=== PATIENT | male | born 1980 | race Caucasian/White ===

== ENCOUNTER 2019-07-29 15:29 | Observation (INO) ==
--- NOTE | 2019-07-29 16:03 | XRay Report ---
XR chest 1V portable HISTORY: Atypical Chest Pain COMPARISON: None. FINDINGS: There are low lung volumes. No pneumothorax. No pleural effusions. Prominence of the cardia c silhouette may be accentuated by the low lung volumes. There are bibasilar linear densities. The annika ngs are clear. No evidence for pulmonary edema. IMPRESSION: Low lung volumes with bibasilar densities suggesting atelectasis. A pneumonia could also have a simil ar appearance. Electronically signed by: Thong Dodge M.D. 07/29/2019 4:01 PM
[2019-07-29 16:32] LABS: Basophils # (auto) 0.01 K/uL (0-0.2); Basophils % (auto) 0.1 %; Eosinophils # (auto) 0.03 K/uL (0-0.5); Eosinophils % (auto) 0.4 %; Hemoglobin 16.6 g/dL (14.0-18.0); Immature Granulocytes # (auto) 0.04 K/uL (0.00-0.02); Immature Granulocytes % (auto) 0.5 %; Lymphocytes # (auto) 1.32 K/uL (1.2-3.4); Lymphocytes % (auto) 15.4 %; Mean Corpuscular Hgb Conc 35.3 g/dL (32-36); Mean Platelet Volume 10.8 fL (7.4-10.4); Monocytes # (auto) 0.57 K/uL (0.11-0.59); Monocytes % (auto) 6.7 %; Neutrophils # (auto) 6.58 K/uL (1.4-6.5); Neutrophils % (auto) 76.9 %; Platelet Count 255 K/uL (130-400); RDW Coefficient of Variation 12.8 % (11.5-14.5); RDW Standard Deviation 39.9 fL (36.4-46.3); Red Blood Count 5.53 M/uL (4.7-6.1); White Blood Count 8.55 K/uL (4.8-10.8)
[2019-07-29 16:43] LABS: Partial Thromboplastin Ratio 0.9; Partial Thromboplastin Time 25.4 Seconds (21.0-31.0); Prothrombin Time 10.3 Seconds (9.0-12.0)
[2019-07-29 16:44] LABS: D Dimer < 190 ug/L FEU (0-500)
[2019-07-29 16:49] LABS: Alanine Aminotransferase 39 U/L (12-78); Albumin Level 4.3 gm/dl (3.4-5.0); Aspartate Aminotransferase 11 U/L (15-37); BUN Creatinine Ratio 13.4 (10-20); Blood Urea Nitrogen 14 mg/dl (7-18); Calcium 9.4 mg/dl (8.5-10.1); Carbon Dioxide 29 mmol/L (21-32); Chloride 108 mmol/L (98-107); Creatinine Clr Calc Pharmacy 116.1 ml/min; Est GFR (African American) 103.1; Glucose 103 mg/dl (70-99); Lipase 57 U/L (73-393); Potassium 3.8 mmol/L (3.5-5.1); Sodium 141 mmol/L (136-145)
[2019-07-29 16:54] LABS: Albumin Globulin Ratio 1.2 (0.9-2); Alkaline Phosphatase 64 U/L (45-117); Bilirubin,Total 0.3 mg/dl (0.2-1); Globulin 3.5 gm/dl (2.5-4.0); Total Protein 7.8 gm/dl (6.4-8.2); Troponin I < 0.015 ng/ml (0-0.045)
--- NOTE | 2019-07-29 17:51 | Emergency Department Note ---
Entered by Francisco Leiva acting as a scribe for History of Present Illness General Chief complaint: Chest Pain Stated complaint: CHEST PAIN Time Seen by Provider: 07/29/19 15:35 Source: patient History of Present Illness Provider complaint: Chest pain Onset (ago): hour(s) greater than 10 Location: chest Radiation: non-radiation Pain Consistency: + constant Quality: + other (Pressure) Relieved By: + none Exacerbated By: + none Associated symptoms: + diaphoresis and + other (Positive dizziness ); no shortness of breath The patient is a 39 year old male who presents to the Emergency Room with complaints of constant left sided chest pain that started early this morning around 02:00, about 14 hours ago. The describes his pain as a pressure and notes "it feels like something is sitting on my chest". 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 The patient reports some pain with deep breathing but denies any shortness of breath or lower extremity swelling. Prior to coming to the ED, the patient stopped at [facility] on the way home from work because he felt dizzy and diaphoretic. While at [facility] the patient had 4 Aspirin but no Nitro. The patient has no past medical history but does have a family history of HLD. Home Medications Home Medications Medication Instructions Recorded Confirmed Type No Known Home Medications 07/29/19 07/29/19 History Allergies Allergy/AdvReac Type Severity Reaction Status Date / Time No Known Allergies Allergy Unverified 07/29/19 16:05 Past Med/Surg History Medical History No pertinent past medical history Family History Other Dyslipidemia Social History Feels Safe at Home: Yes Smoking Status: Never smoker Review of Systems See HPI for pertinent positives & negatives. and A total of 10 systems reviewed and were otherwise negative Physical Exam Vital Signs Vital Signs - 24 hr 07/29/19 15:42 07/29/19 15:44 07/29/19 16:53 Temperature 37.0 C Temperature Source Oral Sepsis Recent Fever Within 48 Hours No Sepsis Action Taken by Nursing No Action Required Pulse Rate 83 82 Pulse Rate [Finger] 81 Pulse Rhythm Regular Respiratory Rate 17 16 Blood Pressure 151/110 H Blood Pressure [Left Arm] 149/88 H Blood Pressure Mean 123 Blood Pressure Mean [Left Arm] 108 Pulse Oximetry 99 99 99 Oxygen Delivery Method Room Air Room Air Room Air 07/29/19 17:30 Temperature Temperature Source Sepsis Recent Fever Within 48 Hours Sepsis Action Taken by Nursing Pulse Rate Pulse Rate [Finger] 72 Pulse Rhythm Respiratory Rate 15 Blood Pressure Blood Pressure [Left Arm] 133/90 Blood Pressure Mean Blood Pressure Mean [Left Arm] 104 Pulse Oximetry 99 Oxygen Delivery Method Room Air GENERAL: Patient is awake, alert, and in no acute distress.Patient is resting comfortably and showing no signs of anxiety EYES: The conjunctivae are clear. The pupils are round and reactive. EARS, NOSE, MOUTH AND THROAT: The nose is without any evidence of any deformity. Mucous membranes are moist.Tongue is midline NECK: The neck is nontender and supple. RESPIRATORY: Normal respiratory effort is noted. There is no evidence of wheezing rhonchi or rales to auscultation. CARDIOVASCULAR: Regular rate and rhythm noted. There no murmurs rubs or gallops normal S1 normal S2 GASTROINTESTINAL: The abdomen is soft. Bowel sounds are present in all quadrants. Abdomen is nontender. MUSCULOSKELETAL/EXTREMITIES: There is no evidence of gross deformity. Full range of motion is noted in the hips and shoulders. SKIN: There is no obvious evidence of any rash. There are no petechiae, pallor or cyanosis noted. NEUROLOGIC: Patient is awake alert and oriented x3. Course 1537: Past medical records reviewed. The patient was evaluated in room B05, and a complete history and physical examination were performed. 1718: I reevaluated the patient and updated him on results. Given that the patient does not have a PCP, I suggested he stay in the hospital. The patient agreed with the plan. 1731: I spoke to Dr. Richard Reyes [facility] about the patient's case. She will be accepting the patient for further evaluation. Consultations Consultation #1: I spoke to Dr. Richard Reyes [facility] Hospitalist about the patient's case. She will be accepting the patient for further evaluation. Time: 17:31 Medical Decision Making Differential Diagnosis Differential diagnoses includes but is not limited to acute coronary syndrome, myocardial infarction, pericarditis, pulmonary embolus, aortic dissection, pneumonia, pneumothorax, musculoskeletal, shingles, esophageal. Medical Records Attestation: I reviewed the patient's medical records. Home Medications Current Medication List: was personally reviewed by me Laboratory Data Attestation: I reviewed the patient's lab results. Result diagrams: 07/29/19 16:15 07/29/19 16:15 Lab Results 07/29/19 07/29/19 07/29/19 Range/Units 16:15 16:15 16:15 WBC 8.55 (4.8-10.8) K/uL RBC 5.53 (4.7-6.1) M/uL Hgb 16.6 (14.0-18.0) g/dL Hct 47.0 (42-52) % MCV 85.0 (80-100) fL MCH 30.0 (25-34) pg MCHC 35.3 (32-36) g/dL RDW Std Deviation 39.9 (36.4-46.3) fL RDW Coeff of Lili 12.8 (11.5-14.5) % Plt Count 255 (130-400) K/uL MPV 10.8 H (7.4-10.4) fL Immature Gran % (Auto) 0.5 % Neut % (Auto) 76.9 % Lymph % (Auto) 15.4 % Brooks % (Auto) 6.7 % Eos % (Auto) 0.4 % Baso % (Auto) 0.1 % Immature Gran # (Auto) 0.04 H (0.00-0.02) K/uL Neut # (Auto) 6.58 H (1.4-6.5) K/uL Lymph # (Auto) 1.32 (1.2-3.4) K/uL Brooks # (Auto) 0.57 (0.11-0.59) K/uL Eos # (Auto) 0.03 (0-0.5) K/uL Baso # (Auto) 0.01 (0-0.2) K/uL PT 10.3 (9.0-12.0) Seconds INR 1.0 (0.9-1.1) APTT 25.4 (21.0-31.0) Seconds PTT Ratio 0.9 D-Dimer < 190 (0-500) ug/L FEU Sodium 141 (136-145) mmol/L Potassium 3.8 (3.5-5.1) mmol/L Chloride 108 H (98-107) mmol/L Carbon Dioxide 29 (21-32) mmol/L Anion Gap 5.0 (3-11) BUN 14 (7-18) mg/dl Creatinine 1.05 (0.6-1.4) mg/dl Est Cr Clr Drug Dosing 116.1 ml/min Est GFR ( Amer) 103.1 Est GFR (Non-Af Amer) 89.0 BUN/Creatinine Ratio 13.4 (10-20) Glucose 103 H (70-99) mg/dl Calcium 9.4 (8.5-10.1) mg/dl Total Bilirubin 0.3 (0.2-1) mg/dl AST 11 L (15-37) U/L ALT 39 (12-78) U/L Alkaline Phosphatase 64 (45-117) U/L Troponin I < 0.015 (0-0.045) ng/ml Total Protein 7.8 (6.4-8.2) gm/dl Albumin 4.3 (3.4-5.0) gm/dl Globulin 3.5 (2.5-4.0) gm/dl Albumin/Globulin Ratio 1.2 (0.9-2) Lipase 57 L (73-393) U/L Imaging Data Radiologist's Impression: Radiology results as stated below per my review and the radiologist's interpretation: XR chest 1V portable HISTORY: Atypical Chest Pain COMPARISON: None. FINDINGS: There are low lung volumes. No pneumothorax. No pleural effusions. Prominence of the cardiac silhouette may be accentuated by the low lung volumes. There are bibasilar linear densities. The lungs are clear. No evidence for pulmonary edema. IMPRESSION: Low lung volumes with bibasilar densities suggesting atelectasis. A pneumonia could also have a similar appearance. Electronically signed by: Thong Dodge M.D. 07/29/2019 4:01 PM ECG Data Attestation: I personally reviewed and interpreted this ECG as follows: Indication: chest pain Rate (beats per minute): 74 Rhythm: normal sinus Findings: + T-wave inversion (Inferior); no PAC, no PVC and no ectopy Comparison ECG Date: no prior available Blood Pressure Blood Pressure Findings: Elevated blood pressure Blood Pressure Disposition: further management by hospitalist MDM Narrative The patient is a 39-year-old male who presented to the emergency department for an evaluation of chest discomfort. The patient was having chest discomfort which he described as a heaviness since this morning. The patient did not explain exertional chest pain. He presented to an outpatient urgent care center and was sent to the emergency department by ambulance. The patient received aspirin prior to arrival. His EKG does show some nonspecific T wave abnormalities. I discussed the patient's laboratory and radiographic studies with him. I also discussed the limitations of the emergency department work-up for chest pain with him. Given the patient's lack of primary care follow-up I did discuss his case with the on-call [facility] hospitalist group. They have agreed to evaluate the patient in the emergency department for further management and disposition. The patient may require serial troponin measurements as well as serial EKGs and then possibly a stress test to further evaluate the cause of his pain. The patient did not have tachycardia or hypoxia. Impression & Plan Chest pain, Acute electrocardiogram changes Discharge Plan Visit Data Chief Complaint: Chest Pain Stated Complaint: CHEST PAIN ED Provider: Farhad Cantor Discharge Problem: Chest pain, Acute electrocardiogram changes Patient Disposition: Being Evaluated by Hospitalist Forms Stand Alone Forms: Call Back Authorization, My [facility] [employer] Prescriptions Prescriptions: No Action No Known Home Medications RF: 0 Referrals Referrals: PCP,NO [Primary Care Provider] - Discharge Problem: Chest pain Qualifiers: Chest pain type: unspecified Qualified Code(s): R07.9 - Chest pain, unspecified The scribe's documentation has been prepared under my direction and personally reviewed by me in its entirety. I confirm that the note above accurately reflects all work, treatment, procedures, and medical decision making performed by me.
--- NOTE | 2019-07-29 18:58 | History & Physical Report ---
Date of Service July 29, 2019 Assessment & Plan (1) Chest pain: - Presented with acute chest pain and diaphoresis; now resolved after ASA 325 mg at the urgent care center. - EKG showed minor T-wave changes, otherwise negative. - Trop was neg; will trend q6hr x 2. - ASA 81 mg daily. - Regular diet; NPO after midnight for possible stress echo in AM. - Observation status; discharge on 07/30 if cardiac work up is negative. - Does not have PCP -- will need to establish care with provider. FEN/GI: Regular diet, NPO after midnight for possible stress echo in AM if necessary; No IVFs or PPI indicated. DVT ppx: Lovenox q24hr Dispo: Med/surg with tele for cardiac work up. FULL CODE History of Present Illness Chief Complaint: Chest Pain Primary Care Provider: NO PCP Mr. Mccray is a 39 year old male with no significant past medical history who presented with acute chest pain. Pt. developed chest pain overnight into this morning -- chest pain is located in sternal area and was described as constant. He has slight numbness/tingling in right hand, otherwise denies radiation to left arm or jaw/neck. He was driving back from [place] and went to an urgent care center. BP was elevated at urgent care, systolic 160's, and he was noted to be diaphoretic. EKG was negative for acute changes. He was brought to the ER by ambulance for further evaluation. Pt. reports chest pain is now resolved; denies URI symptoms, SOB, cough, abd pain, constipation or diarrhea, dysuria or hematuria. ER: Trop was negative. EKG with minor T-wave changes, otherwise negative. BP has been slightly elevated, may be partially anxiety induced. Will be admitted for cardiac work up. Allergies Allergy/AdvReac Type Severity Reaction Status Date / Time No Known Allergies Allergy Unverified 07/29/19 16:05 Home Medications Home Medications Medication Instructions Recorded Confirmed Type No Known Home Medications 07/29/19 07/29/19 History Past Med/Surg History Surgical History No pertinent past surgical history Family History Other Dyslipidemia Social History marital status: Current Living Situation: Family Feels Safe at Home: Yes Smoking Status: Never smoker Hx Alcohol Use: Yes Alcohol Intake Frequency: Holidays/Special Occasions Review of Systems Review of Systems: All systems reviewed & are unremarkable except as noted in HPI & below Constitutional: no fever, no chills, no fatigue, no weakness and no anorexia Respiratory: no cough, no dyspnea, no dyspnea on exertion and no wheezing Cardiovascular: + chest pain; no radiating jaw, neck or arm pain, no palpitations, no lightheadedness, no syncope and no edema Gastrointestinal: no abdominal pain, no nausea, no vomiting, no constipation and no diarrhea/loose stools Genitourinary: no difficulty urinating Musculoskeletal: no back pain and no joint pain Integumentary: no non-healing lesions Physical Exam Physical Exam: General: Resting comfortably HEENT: NC/AT; PERRLA with EOMI; [place] conjunctiva, MMM. No erythema of posterior pharynx Neck: Supple and nontender Cardiac: RRR Lungs: CTA bilaterally Abdomen: Bowel normoactive X 4; Nontender to palpation Extremities: Warm. No edema present Neuro: No focal weakness Skin: No rash Constitutional: WD/WN, vitals as above Eyes: normal visual rahman by confrontation and + anicteric sclerae Neck: normal visual inspection and trachea midline Respiratory: normal respiratory effort, lungs clear to auscultation Cardiovascular: Rate/Rhythm: regular rate and regular rhythm Gastrointestinal (Abdomen): Inspection/Auscultation: abdomen not distended Percussion/Palpation: abdomen soft; abdomen nontender Musculoskeletal: Head/Neck/Chest: normocephalic and head atraumatic Neg for peripheral LE edema, + pedal pulses Skin: no rashes, warm and dry Neurologic: awake; not confused Speech / Cognition: normal speech Psychiatric: A+Ox3, euthymic affect Lymphatic: Exam as done by Juana Ramos DO Results & Data Vital Signs (Past 12 Hours) Vital Signs Temp Pulse Pulse Resp BP BP Pulse Ox 07/29/19 18:30 77 16 139/102 H 100 07/29/19 18:00 75 16 122/89 99 07/29/19 17:30 72 15 133/90 99 07/29/19 16:53 81 16 149/88 H 99 07/29/19 15:44 82 99 07/29/19 15:42 37.0 C 83 17 151/110 H 99 Laboratory Results 08/07/29/19 07/29/19 Range/Units 16:15 16:15 16:15 WBC 8.55 (4.8-10.8) K/uL RBC 5.53 (4.7-6.1) M/uL Hgb 16.6 (14.0-18.0) g/dL Hct 47.0 (42-52) % MCV 85.0 (80-100) fL MCH 30.0 (25-34) pg MCHC 35.3 (32-36) g/dL RDW Std Deviation 39.9 (36.4-46.3) fL RDW Coeff of Lili 12.8 (11.5-14.5) % Plt Count 255 (130-400) K/uL MPV 10.8 H (7.4-10.4) fL Immature Gran % (Auto) 0.5 % Neut % (Auto) 76.9 % Lymph % (Auto) 15.4 % Ray % (Auto) 6.7 % Eos % (Auto) 0.4 % Baso % (Auto) 0.1 % Immature Gran # (Auto) 0.04 H (0.00-0.02) K/uL Neut # (Auto) 6.58 H (1.4-6.5) K/uL Lymph # (Auto) 1.32 (1.2-3.4) K/uL Ray # (Auto) 0.57 (0.11-0.59) K/uL Eos # (Auto) 0.03 (0-0.5) K/uL Baso # (Auto) 0.01 (0-0.2) K/uL PT 10.3 (9.0-12.0) Seconds INR 1.0 (0.9-1.1) APTT 25.4 (21.0-31.0) Seconds PTT Ratio 0.9 D-Dimer < 190 (0-500) ug/L FEU Sodium 141 (136-145) mmol/L Potassium 3.8 (3.5-5.1) mmol/L Chloride 108 H (98-107) mmol/L Carbon Dioxide 29 (21-32) mmol/L Anion Gap 5.0 (3-11) BUN 14 (7-18) mg/dl Creatinine 1.05 (0.6-1.4) mg/dl Est Cr Clr Drug Dosing 116.1 ml/min Est GFR ( Amer) 103.1 Est GFR (Non-Af Amer) 89.0 BUN/Creatinine Ratio 13.4 (10-20) Glucose 103 H (70-99) mg/dl Calcium 9.4 (8.5-10.1) mg/dl Total Bilirubin 0.3 (0.2-1) mg/dl AST 11 L (15-37) U/L ALT 39 (12-78) U/L Alkaline Phosphatase 64 (45-117) U/L Troponin I < 0.015 (0-0.045) ng/ml Total Protein 7.8 (6.4-8.2) gm/dl Albumin 4.3 (3.4-5.0) gm/dl Globulin 3.5 (2.5-4.0) gm/dl Albumin/Globulin Ratio 1.2 (0.9-2) Lipase 57 L (73-393) U/L Code Status & VTE Plan Code Status FULL CODE VTE Prophylaxis Plan VTE Prophylaxis will be ordered: Yes Supervising Physician Co-Signing Physician Notes Pt seen and examined by me. Had sudden onset of chest pain and diaphoresis earlier today while driving home from a conference in [place]. Was seen at an and given sx and BP elevated, was sent to the ED. Denies current chest pain or SOB. Tolerating PO without issue. Agree with HPI/ROS as noted by PA See above for my exam in PE section Agree with plan as outlined above Chest pain r/o, trop neg EKG with some T wave changes CBC, PRP WNL CXR neg Pt is quite frustrated about having to stay given resolution of sx I and PA did discuss with him and he is agreeable to stay He does not live in the area, has no prior medical hx, does not follow with a PCP PG Care Time/CCT Total # of Minutes Spent Total Time Spent with Patient: Total time spent is greater than 50% in coordination of care (as documented) at patient's floor/unit and/or counseling patient: (1) Chest pain Chest pain type: unspecified Qualified Code(s): R07.9 - Chest pain, unspecified
[2019-07-29] MEDS ORDERED: LORazepam 0.5 MG TAB PO PRN (20:06)
[2019-07-29] MEDS ORDERED: ACETAMINOPHEN 325 MG TAB PO PRN (20:06)
[2019-07-29] MEDS ORDERED: MoRPHine SULFATE 2 MG/ML CARP IV PRN (20:06)
[2019-07-29] MEDS ORDERED: NITROGLYCERIN SL 0.4 MG/TAB TAB SL PRN (20:06)
[2019-07-29] MEDS ORDERED: ENOXAPARIN INJ 40 MG/0.4 ML SYR SQ SCH (21:00)
[2019-07-30] MEDS ORDERED: ASPIRIN 81 MG ECTAB PO SCH (09:00)
[2019-07-30 10:15] LABS: Chol HDL Ratio 6; Cholesterol 174 mg/dl (0-200); HDL Cholesterol 28 mg/dl; LDL Cholesterol Calculated 115 mg/dl; Triglycerides 157 mg/dl (0-150); VLDL Cholesterol 31 mg/dl
[2019-07-30 10:56] LABS: Estimated Average Glucose 108 mg/dl; Hemoglobin A1C 5.4 % (4.5-5.6)
--- NOTE | 2019-07-30 17:12 | Discharge Summary ---
Date of Service July 30, 2019 Admission HPI Per Admitting Provider Mr. Mccray is a 39 year old male with no significant past medical history who presented with acute chest pain. Pt. developed chest pain overnight into this morning -- chest pain is located in sternal area and was described as constant. He has slight numbness/tingling in right hand, otherwise denies radiation to left arm or jaw/neck. [place] and went to an urgent care center. BP was elevated at urgent care, systolic 160's, and he was noted to be diaphoretic. EKG was negative for acute changes. He was brought to the ER by ambulance for further evaluation. Pt. reports chest pain is now resolved; denies URI symptoms, SOB, cough, abd pain, constipation or diarrhea, dysuria or hematuria. ER: Trop was negative. EKG with minor T-wave changes, otherwise negative. BP has been slightly elevated, may be partially anxiety induced. Will be admitted for cardiac work up. Admission Exam Per Admitting Provider General: Resting comfortably HEENT: NC/AT; PERRLA with EOMI; [place] conjunctiva, MMM. No erythema of posterior pharynx Neck: Supple and nontender Cardiac: RRR Lungs: CTA bilaterally Abdomen: Bowel normoactive X 4; Nontender to palpation Extremities: Warm. No edema present Neuro: No focal weakness Skin: No rash Principal Diagnosis Chest Pain Discharge Exam General: no acute distress HEENT: NC/AT; PERRLA with EOMI; [place] conjunctiva, MMM. Neck: Supple and nontender Cardiac: RRR Lungs: CTA bilaterally Abdomen: Bowel normoactive X 4; Nontender to palpation Extremities: Warm. No edema present Neuro: No focal weakness Skin: No rash Discharge Data Allergies Allergy/AdvReac Type Severity Reaction Status Date / Time No Known Allergies Allergy Unverified 07/29/19 16:05 Consultations 07/29/19 17:21 ED Decision to Admit Stat Ordered Studies CXR Hospital Course (1) Chest pain: Presented with acute chest pain and diaphoresis; now resolved after ASA 325 mg at the urgent care center. EKG showed nonspecific inferior T-wave changes in the setting of elevated BP 150s/10 in ER, otherwise negative. Repeat ECG the next AM was normal Trop neg x 3. ASA 81 mg daily as inpt; will d/c at discharge. Completed stress echo on 07/30, was negative. Had substernal chest pain associated with diaphoresis x 14 hours straight that was finally relieved with aspirin prior to arrival here. Most likely some sort of MSK chest pain. Not likely to have been GI-related as it improved with aspirin. His associated mild right finger tingling was likely secondary to anxiety/hyperventilation. Cardiac workup negative, CXR negative, labs normal. No cardiac risk factors otherwise. Not tender to palpation over ribs or sternum at this point. Will need to establish care with PCP. Discharged to home on 07/30/19. Total Time Total Time Spent Total Time Spent (In Minutes): >30 minutes Total Time Includes: Examination of the Patient, Discharge Planning, Medication Reconciliation, Communication With Other Providers and Other Discharge Plan Discharge Items Patient Disposition: Home - Self-Care Reason For Visit: CHEST PAIN Discharge Diagnosis: Chest Pain Condition: Good Discharge Goals: Improve disease control, Improve function, Increase independence, Improve nutritional status and Prevent disease Activity: As commented below Lifting: Gradually increase as tolerated Bathing: No limitations Exercise/Sports: Gradually increase as tolerated Driving/Machine Use: No limitations Non-emergency contact: Primary Care Provider Call non-emergency contact if: you have any medication questions, your symptoms worsen, your pain is not controlled, your pain is worsening, your pain is unusual for you, your pain is concerning for you and you have a fever Follow-up/Referrals: Cary Carr D.O. [Primary Care Provider] - 08/04/19 9:15 am (Please, follow up with Dr. Cary Carr on FridayAugust 04 at 9:15 am - as scheduled. If you need to change this appointment, call the office at [phone].) Diet: Heart Healthy and Low Fat Addtl Provider Instructions: 1. Chest Pain * Cardiac work up was negative during this admission with exception of elevated triglycerides. * Please consume a heart healthy, low fat diet at home. * Please increase activity, including exercise 3-4 days per day, up to 30 minutes per day. * You will need to establish care with a family doctor for routine evaluation. 2. Please call 911 or go to the ER if you develop: * Recurrent chest pain, shortness of breath, diaphoresis. * Severe nausea/vomiting or diarrhea. Prescriptions: No Action No Known Home Medications RF: 0 Stand-Alone Forms: Call Back Authorization, My [facility]/Other Patient Handouts: Heart Risk, Heart Attack Warning Signs Discharge Orders: Discharge Order (Routine); Ordered 07/30/19 Ordered By: Nae Darling Admission Data Admit Date/Time: 07/29/19 18:37 Attending Provider: Nae Darling Admit Provider: Erinn Butler Primary Care Provider: Cary Carr Other Providers: Juana Ramos Service: Telemetry Other Interventions: Discharge Summary Assessment (RN) Last Done: 07/30/19 15:26 Pending Studies at Discharge: No DC Date/Time DO NOT enter until pt leaves facility: 07/30/19 15:56 Supervising Physician Co-Signing Physician Notes PA Supervision Note: I personally saw and examined the patient. I verified all caicedo points and agree with ANA PAULA Butler with the following exceptions and/or additions: Chest pain resolved with aspirin prior to arrival after lasting 14 hours. Cardiac workup negative. Did have elevated BP on arrival likely stress and pain- induced. Now doing very well, no events on telemetry Stable for dc to home VSS RRR no MGR no TTP over chest wall CTAB no wcr Abd soft NT ND Ext no edema, no calf tenderness
== END 2019-07-30 15:56 | disposition home or self-care (01) ==
LOC: 2S 15:29 → ED 15:29 → SUATTDRO 18:37 → 2S 19:29
DX: R07.9 Chest pain, unspecified